=== PATIENT | female | born 1975 | race Caucasian/White ===

== ENCOUNTER → 2016-06-17 | Outpatient (CLI) | payer BC ==
[~2016-06-17] MED LIST: CELEXA10 MG PO; ESTRACE1 MG PO; HYDROCODONE BIT1 T11 PO; KEPPRA500 MG PO; MACROBID100 M1 PO; VICODIN 500 MG-1 TAB PO; ZANTAC150 MG PO
== END | disposition home or self-care (01) ==
LOC: MRI 15:00
DX: R56.9 Unspecified convulsions (principal); R51 Headache; R42 Dizziness and giddiness